=== PATIENT | female | born 2000 | race Hispanic/Latino ===

== ENCOUNTER 2022-08-18 23:35 | Day surgery (SDC) | payer BC, OTHER ==
[2022-08-18 23:53] VITALS: BMI 37.5
[2022-08-19] MEDS ORDERED: hydrALAZINE 20 MG/ML VIAL SLOW IVP PRN (00:38)
[2022-08-19 00:48] LABS: Bilirubin Neg (Negative); Blood, Urine Negative (Negative); Clarity Clear (Clear); Glucose, Urine (Dipstick) Normal (Negative); Ketone, Urine Negative (Negative); Leukocyte Negative (Negative); Nitrite Negative (Negative); Protein, Urine (Dipstick) Negative (Neg-Trace); Urobilinogen Normal mg/dL (Less than 2)
[2022-08-19 01:40] LABS: Bacteria/HPF 1+ HPF (None Seen); RBC/HPF 0-3 HPF (0-3); Squamous Epithelial 0-3 HPF (0-3); WBC/HPF 0-3 HPF (0-3)
== END 2022-08-19 01:09 | disposition home or self-care (01) ==
LOC: CSHLD/OP 23:35
PROVIDERS: ATTEND Student in an Organized Health Care Education/Training Program
DX: O47.1 False labor at or after 37 completed weeks of gestation (principal); O23.593 Infection of other part of genital tract in pregnancy, third trimester; O99.213 Obesity complicating pregnancy, third trimester; E66.9 Obesity, unspecified; D64.9 Anemia, unspecified; O99.013 Anemia complicating pregnancy, third trimester; O23.43 Unspecified infection of urinary tract in pregnancy, third trimester; O99.820 Streptococcus B carrier state complicating pregnancy; Z3A.38 38 weeks gestation of pregnancy; Z79.899 Other long term (current) drug therapy
CPT/HCPCS: 81001; 87086; 87480; 87510; 87660; 99284

== ENCOUNTER 2022-08-24 05:54 | Inpatient (IN) | payer BC, OTHER ==
[2022-08-24] MEDS ORDERED: Diphenoxylate HCl/Atropine Tablet PO PRN (06:26)
[2022-08-24] MEDS ORDERED: Carboprost 250 MCG/ML AMP IM PRN (06:26)
[2022-08-24] MEDS ORDERED: Ondansetron PF 4 MG/2 ML Vial IVP PRN ×2 (06:26→17:41)
[2022-08-24] MEDS ORDERED: hydrALAZINE 20 MG/ML VIAL SLOW IVP PRN (06:26)
[2022-08-24] MEDS ORDERED: Methylergonovine 0.2 MG/ML VIAL IM PRN (06:26)
[2022-08-24] MEDS ORDERED: Misoprostol 200 MCG TAB PR PRN (06:26)
[2022-08-24] MEDS ORDERED: Ibuprofen 800 MG TAB PO PRN (06:26)
[2022-08-24] MEDS ORDERED: Tranexamic Acid 1,000 MG/10 ML VIAL IVP PRN (06:26)
[2022-08-24] MEDS ORDERED: Acetaminophen 500 MG TAB PO PRN (06:26)
[2022-08-24] MEDS ORDERED: Lidocaine 1% (PF) 30 ML VIAL SC PRN (06:26)
[2022-08-24] MEDS ORDERED: Promethazine HCl 25 MG/ML VIAL IM PRN ×2 (06:26→17:41)
[2022-08-24] MEDS ORDERED: NS w/ Oxytocin 30 units 500 ML IV SCH ×2 (06:30→11:00)
[2022-08-24] MEDS ORDERED: Penicillin G Potassium 5 MILL.UNITS in Sodium Chloride 0.9% 100 ML IVPB SCH (06:30)
[2022-08-24 06:35] VITALS: BMI 38.8
[2022-08-24] MEDS: Lactated Ringer's 1,000 ML IV SCH ×2 (07:10→14:48)
[2022-08-24 07:51] LABS: HBSAg Index 0.16 S/CO (0-0.99); Hep B Surf Ag - L&D Non-Reactive S/CO (NonReactive)
[2022-08-24 07:52] LABS: Syphilis Antibody Nonreactive (Nonreactive); Syphilis Antibody Index 0.04 S/CO (<1.00 Non-Reactive)
[2022-08-24] MEDS ORDERED: Bupivacaine PF 0.5% 30 ML VIAL ONE (08:00)
[2022-08-24] MEDS ORDERED: ePHEDrine Sulfate 50 MG/10 ML VIAL ONE ×2 (08:00→17:30)
[2022-08-24] MEDS ORDERED: Bupivacaine 0.25% HCL 30 ML VIAL ONE ×3 (08:00→16:18)
[2022-08-24 08:37] LABS: Hemoglobin 12.7 g/dL (12.0-15.5); Mean Corpuscular HGB CONC 34.4 g/dL (32.0-36.0); Mean Corpuscular Hemoglobin 32.5 pg (27.0-33.0); Mean Corpuscular Volume 94.4 fl (81.6-98.3); Mean Platelet Volume 11.7 fl (7.4-10.4); Platelet Count 163 10x3/uL (150-450); RBC Distribution Width 14.9 % (11.5-14.5); Red Blood Cell (RBC) Count 3.91 10x6/uL (3.90-5.03); White Blood Cell (WBC) Count 11.4 10x3/uL (3.5-10.5)
[2022-08-24] MEDS ORDERED: Fentanyl 2 mcg/Bup 0.1% Cadd 100 ML ONE (09:02)
[2022-08-24] MEDS ORDERED: HYDROcodone/Acetaminophen 5/325 mg Tablet PO PRN ×2 (09:50)
[2022-08-24] MEDS ORDERED: Fentanyl 100 MCG/2 ML VIAL ONE (09:52)
[2022-08-24] MEDS ORDERED: Fentanyl 100 MCG/2 ML VIAL SLOW IVP PRN (10:00)
[2022-08-24] MEDS: Penicillin G 2.5 MILL.units 2.5 MILL.UNITS in Premix Bag 1 BAG IVPB SCH ×2 (10:54→14:40)
[2022-08-24] MEDS ORDERED: Acetaminophen 325 MG TAB PO PRN (17:41)
[2022-08-24] MEDS ORDERED: diphenhydrAMINE 50 MG/ML VIAL IVP PRN (17:41)
[2022-08-24] MEDS ORDERED: Moisturizing Cream (Eucerin) 113 GM JAR TOP PRN (17:41)
[2022-08-24] MEDS ORDERED: Lactated Ringer's 500 ML IV PRN (17:41)
[2022-08-24] MEDS ORDERED: Naloxone HCl 0.4 mg/ml Vial IVP PRN ×2 (17:41)
[2022-08-24] MEDS ORDERED: ePHEDrine Sulfate 50 MG/10 ML VIAL SLOW IVP PRN (17:41)
[2022-08-24] MEDS ORDERED: Communication Order-Pharmacy FS SCH (17:45)
[2022-08-24] MEDS ORDERED: Fentanyl 2 mcg/Bupivacaine 0.1% Cassette 100 ML EPIDURAL SCH (17:45)
[2022-08-25] MEDS ORDERED: Ropivacaine HCl/PF 100 ML NERVE BLCK SCH ×2 (03:15→03:45)
[2022-08-25] MEDS ORDERED: Gentamicin Sulfate 320 MG in Sodium Chloride 0.9% 100 ML IVPB SCH (06:00)
[2022-08-25] MEDS ORDERED: Acetaminophen 325 MG TAB PO PRN (06:38)
[2022-08-25] MEDS: Ampicillin 2 GM in Sodium Chloride 0.9% 100 ML IVPB SCH ×2 (08:20→14:18)
[2022-08-25] MEDS ORDERED: Carboprost 250 MCG/ML AMP IM PRN (08:30)
[2022-08-25] MEDS ORDERED: Tranexamic Acid 1,000 MG/10 ML VIAL IVP PRN (08:30)
[2022-08-25] MEDS ORDERED: Misoprostol 200 MCG TAB PR PRN (08:30)
[2022-08-25] MEDS ORDERED: Methylergonovine 0.2 MG/ML VIAL IVP PRN (08:30)
[2022-08-25] MEDS ORDERED: Bisacodyl 10 MG SUPP PR PRN (09:57)
[2022-08-25] MEDS ORDERED: Lanolin Ointment 7 GM TUBE TOP PRN (09:57)
[2022-08-25] MEDS ORDERED: Milk Of Magnesia 30 ML UDCUP PO PRN (09:57)
[2022-08-25] MEDS ORDERED: Boostrix 0.5 ML (Tdap) VIAL (>/=7 yrs of age) IM ONE (09:57)
[2022-08-25 10:25] LABS: pH (Cord, venous) 7.364 (7.250-7.350)
[2022-08-25] MEDS: Ibuprofen 800 MG TAB PO SCH ×2 (12:03→19:39)
[2022-08-25] MEDS: Lactated Ringer's 1,000 ML IV SCH (14:32)
[2022-08-25] MEDS: Penicillin G 2.5 MILL.units 2.5 MILL.UNITS in Premix Bag 1 BAG IVPB SCH (14:33)
[2022-08-25] MEDS: Ferrous Sulfate 325 MG TAB PO SCH (17:55)
[2022-08-25] MEDS: Docusate 100 MG CAP PO SCH (21:20)
[2022-08-25] MEDS ORDERED: Benzocaine-Menthol 82.5 ML CAN TOP PRN (22:49)
[2022-08-26] MEDS: Ibuprofen 800 MG TAB PO SCH ×3 (04:16→20:54)
[2022-08-26 05:27] LABS: #Eosinphils 0.1 10x3/uL (0.0-0.5); #Monocytes 1.1 10x3/uL (0.0-1.1); #Neutrophils 10.2 10x3/uL (1.5-8.4); %Basophils 0.3 % (0.0-2.0); %Eosinophils 0.8 % (0.0-6.0); %Lymphocytes 19.2 % (18.0-47.0); %Monocytes 7.7 % (0.0-10.0); Hemoglobin 11.1 g/dL (12.0-15.5); Mean Corpuscular HGB CONC 33.9 g/dL (32.0-36.0); Mean Corpuscular Hemoglobin 32.9 pg (27.0-33.0); Platelet Count 152 10x3/uL (150-450); Red Blood Cell (RBC) Count 3.37 10x6/uL (3.90-5.03); White Blood Cell (WBC) Count 14.4 10x3/uL (3.5-10.5)
[2022-08-26] MEDS: Lactated Ringer's 1,000 ML IV SCH ×2 (08:24→19:55)
[2022-08-26] MEDS: Ferrous Sulfate 325 MG TAB PO SCH ×2 (08:25→15:46)
[2022-08-26] MEDS: Docusate 100 MG CAP PO SCH ×2 (08:25→20:54)
[2022-08-26] MEDS: Prenatal Vitamin 1 TAB PO SCH (08:26)
[2022-08-27] MEDS: Ibuprofen 800 MG TAB PO SCH ×2 (05:11→13:19)
[2022-08-27] MEDS: Lactated Ringer's 1,000 ML IV SCH (05:29)
[2022-08-27 07:51] VITALS: BP 133/62; TEMP 97.7
[2022-08-27] MEDS: Prenatal Vitamin 1 TAB PO SCH (13:18)
[2022-08-27] MEDS: Docusate 100 MG CAP PO SCH (13:18)
== END 2022-08-27 12:27 | disposition home or self-care (01) | DRG 805 ==
LOC: CSHLD/OP 05:54 → CSHLD 06:31 → CSHPP 08-25 13:50
PROVIDERS: ADMIT Emergency Medicine; ATTEND Emergency Medicine
PROC: 3E033VJ Introduction of Other Hormone into Peripheral Vein, Percutaneous Approach (ICD-10-PCS; 2022-08-24)
PROC: 10H07YZ Insertion of Other Device into Products of Conception, Via Natural or Artificial Opening (ICD-10-PCS; 2022-08-24)
PROC: 10E0XZZ Delivery of Products of Conception, External Approach (ICD-10-PCS; principal; 2022-08-25)
PROC: 0KQM0ZZ Repair Perineum Muscle, Open Approach (ICD-10-PCS; 2022-08-25)
PROC: 0W8NXZZ Division of Female Perineum, External Approach (ICD-10-PCS; 2022-08-25)
PROC: 4A033R1 Measurement of Arterial Saturation, Peripheral, Percutaneous Approach (ICD-10-PCS; 2022-08-25)
DX: O42.02 Full-term premature rupture of membranes, onset of labor within 24 hours of rupture (principal); O41.1230 Chorioamnionitis, third trimester, not applicable or unspecified; Z37.0 Single live birth; Z3A.38 38 weeks gestation of pregnancy; O99.824 Streptococcus B carrier state complicating childbirth; O26.893 Other specified pregnancy related conditions, third trimester; Z67.11 Type A blood, Rh negative; Z79.899 Other long term (current) drug therapy; O70.1 Second degree perineal laceration during delivery; O66.0 Obstructed labor due to shoulder dystocia; O69.89X0 Labor and delivery complicated by other cord complications, not applicable or unspecified; O76 Abnormality in fetal heart rate and rhythm complicating labor and delivery; O69.81X0 Labor and delivery complicated by cord around neck, without compression, not applicable or unspecified; D64.9 Anemia, unspecified; O90.81 Anemia of the puerperium
CPT/HCPCS: 36415; 51702; 82805; 85025; 85027; 86780; 86850; 86900; 86901; 87340; 88307; 93970; 99285; J0290; J2540; J2590; J2795; J3010; J3490; J7120; S0020